=== PATIENT | male | born 1960 | race Caucasian/White ===

== ENCOUNTER 2019-09-11 21:15 | Emergency (ER) | payer BC ==
[2019-09-11] MEDS ORDERED: FLUORESCEIN STRIPS 1 MG STRIP LEFT EYE ONE (21:29)
[2019-09-11] MEDS ORDERED: PROPARACAINE 0.5% OPHTH DROPS 15 ML BTL LEFT EYE STA (21:29)
--- NOTE | 2019-09-11 22:03 | ED ---
Eye Problem HPI - General Chief complaint: Eye Problems Stated complaint: Acid in Eye Time Seen by Provider: 09/11/19 21:21 Source: patient Mode of arrival: ambulatory Limitations: no limitations - History of Present Illness Initial comments: 59-year-old male patient presents to the emergency department today for evaluation after splashing battery acid in his left eye. Patient states he was filling a battery with acid when a small droplet hit him in the left eye. He is unsure if he hit his skin or the eyeball. States that he immediately started fl ushing the eye out. States he flushed it with both hot and cold water for a total of 30 minutes. Patient states this occurred around 1930. States it took him proximal and hour to get here. States he is having some discomfort to the left eye states it feels thicker than usual. He denies any blurred or double vision. Denies any significant pain to the eye. Denies any tearing or drainage. Patient denies any headache, neck pain, back pain, chest pain, shortness of breath, dizziness, weakness, abdominal pain, nausea, vomiting, or difficulties with bowel movements or urination. - Related Data Allergies Allergy/AdvReac Type Severity Reaction Status Date / Time No Known Allergies Allergy Verified 09/11/19 21:20 Review of Systems ROS Statement: Those systems with pertinent positive or pertinent negative responses have been documented in the HPI. ROS Other: All systems not noted in ROS Statement are negative. Past Medical History Past Medical History: Prostate Disorder, Thyroid Disorder History of Any Multi-Drug Resistant Organisms: None Reported Past Surgical History: Hernia Repair Past Psychological History: No Psychological Hx Reported Smoking Status: Never smoker Past Alcohol Use History: None Reported Past Drug Use History: None Reported General Exam Limitations: no limitations General appearance: alert, in no apparent distress, other (Physical well- developed, well-nourished adult male patient in no acute distress. Vital signs upon presentation are temperature 97.7F, pulse 84, respirations 18, blood pressure 182/85, pulse ox 97% on room air.) Eye exam: Present: normal appearance, PERRL, EOMI, other (Fluorescein stain with Wood's lamp examination was performed to the left eye. No evidence for injury to the conjunctiva or cornea. There is no conjunctival injection. No drainage. Extraocular movements are intact.). Absent: scleral icterus, conjunctival injection, periorbital swelling ENT exam: Present: normal exam, normal oropharynx, mucous membranes moist Respiratory exam: Present: normal lung sounds bilaterally. Absent: respiratory distress, wheezes, rales, rhonchi, stridor Cardiovascular Exam: Present: regular rate, normal rhythm, normal heart sounds. Absent: systolic murmur, diastolic murmur, rubs, gallop, clicks Neurological exam: Present: alert, oriented X3, CN II-XII intact Psychiatric exam: Present: normal affect, normal mood Skin exam: Present: warm, dry, intact, normal color. Absent: rash Course Vital Signs 09/11/19 09/11/19 21:18 22:22 Temperature 97.7 F 98.2 F Pulse Rate 84 78 Respiratory 18 20 Rate Blood Pressure 182/85 123/79 O2 Sat by Pulse 97 Oximetry Medical Decision Making - Medical Decision Making 59-year-old male patient presented to the emergency department today for evaluation after exercise splashing battery acid in his left eye. He is not sure if it is actual eyeball or the skin surrounding his eye. States he did flush with water for 30 minutes. Physical examination is unremarkable. Did perform fluorescein stain with Wood's lamp examination which showed no evidence for injury. Patient is having very minimal discomfort, he is describing as a thickness. I did discuss the case with poison control who recommends no further intervention. We discharged follow up with ophthalmology for further evaluation if he has any further symptoms. He is instructed to follow up with his primary care physician for recheck in 1-2 days. Return parameters were discussed in detail. He verbalizes understanding and agrees with this plan. Disposition Clinical Impression: Chemical injury of left eye Disposition: HOME SELF-CARE Condition: Good Instructions (If sedation given, give patient instructions): Chemical Eye Berger (ED) Additional Instructions: Obtain [id number] lubricating eyedrops for comfort. Take Tylenol Motrin for pain control. Follow-up with your primary care physician for recheck in 1-2 days. Return to the emergency department immediately for any new, worsening, or concerning symptoms. Give any further issues he can follow-up with the management expert his number is listed for you below. Is patient prescribed a controlled substance at d/c from ED?: No Referrals: Gene Johnson DO [Primary Care Provider] - 1-2 days Jose Sow MD [STAFF PHYSICIAN] - 1-2 days Time of Disposition: 22:03
[2019-09-11 22:23] VITALS: BP 123/79; PULSE 78; RESP 20; TEMP 98.2
== END 2019-09-11 22:24 | disposition home or self-care (01) ==
LOC: EC 21:15
DX: T26.92XA Corrosion of left eye and adnexa, part unspecified, initial encounter (principal); T54.2X1A Toxic effect of corrosive acids and acid-like substances, accidental (unintentional), initial encounter; Y93.89 Activity, other specified
CPT/HCPCS: 99283